=== PATIENT | male | born 1965 | race Caucasian/White ===

== ENCOUNTER 2017-09-06 15:58 | Emergency (ER) | payer SELFPAY ==
[2017-09-06 16:03] VITALS: TEMP 97.2
--- NOTE | 2017-09-06 17:38 | ED PDOC ---
HPI: Psych/Substance Abuse Time Seen by Provider: 09/06/17 16:09 Chief Complaint (Nursing): Alcohol Ingestion Chief Complaint (Provider): Alcohol Ingestion History Per: EMS History/Exam Limitations: intoxication Onset/Duration Of Symptoms: Hrs Current Symptoms Are (Timing): Still Present Modifying Factor(s): Alcohol Additional Complaint(s): 51 year old male brought in by EMS for intoxication. Bottles of liquor in possession. History and review of systems limited due to intoxicated state. Past Medical History Reviewed: Historical Data, Nursing Documentation, Vital Signs Vital Signs: Last Vital Signs Temp 97.2 F L 09/06/17 16:01 Pulse 70 09/06/17 16:01 Resp 16 09/06/17 16:01 BP 102/59 L 09/06/17 16:01 Pulse Ox 95 09/06/17 16:01 - Medical History PMH: Schizophrenia Denies: Diabetes, Hepatitis, HIV, HTN, Seizures, Sexually Transmitted Disease - Surgical History Surgical History: No Surg Hx - Family History Family History: States: Unknown Family Hx - Home Medications Home Medications: Ambulatory Orders Medication Instructions Recorded No Known Home Med [No Known Home 11/19/14 Med] - Allergies Allergies/Adverse Reactions: Allergies Allergy/AdvReac Type Severity Reaction Status Date / Time No Known Allergies Allergy Verified 09/06/17 16:00 Review of Systems Review Of Systems: ROS cannot be obtained secondary to pt's inabilty to answer questions. Physical Exam - Reviewed Nursing Documentation Reviewed: Yes Vital Signs Reviewed: Yes - Physical Exam Appears: Positive for: No Acute Distress Head Exam: Positive for: ATRAUMATIC, NORMOCEPHALIC Skin: Positive for: Normal Color, Warm, Dry Eye Exam: Positive for: Normal appearance, EOMI, PERRL ENT: Positive for: Normal ENT Inspection Neck: Positive for: Normal, Painless ROM Cardiovascular/Chest: Positive for: Regular Rate, Rhythm. Negative for: Murmur Respiratory: Positive for: Normal Breath Sounds. Negative for: Respiratory Distress Gastrointestinal/Abdominal: Positive for: Normal Exam Back: Positive for: Normal Inspection Extremity: Positive for: Normal ROM. Negative for: Pedal Edema, Deformity Neurologic/Psych: Positive for: Other (Arousable to verbal stimuli ) - ECG O2 Sat by Pulse Oximetry: 95 (RA) Pulse Ox Interpretation: Normal Medical Decision Making Medical Decision Making: Time: 1622 Plan: -- Glucose, Blood POC Time: 1649 Plan: -- Glucose, POC Time: 1709 Plan: -- Alcohol Serum Scribe Attestation: Documented by Whitney Bower, acting as a scribe for Dr. Lanny Thomas MD. Provider Scribe Attestation: All medical record entries made by the Scribe were at my direction and personally dictated by me. I have reviewed the chart and agree that the record accurately reflects my personal performance of the history, physical exam, medical decision making, and the department course for this patient. I have also personally directed, reviewed, and agree with the discharge instructions and disposition. Disposition - Clinical Impression Clinical Impression: Alcohol abuse with intoxication - Disposition Referrals: [facility] [Outside] Disposition: Transfer of Care Disposition Time: 19:00 Condition: GOOD Additional Instructions: Follow up with your PCP in 4-5 days Instructions: Alcohol Abuse and Alcoholism (DC) Patient Signed Over To: Patti Kuhn Handoff Comments: Pending sobriety.
--- NOTE | 2017-09-06 19:14 | ED PDOC ---
- ECG O2 Sat by Pulse Oximetry: 95 (RA) Pulse Ox Interpretation: Normal - Progress Re-evaluation Time: 22:39 Condition: Re-examined, Improved Medical Decision Making Medical Decision Making: Patient endorsed to me @[address] Thomas, pending sobriety. Scribe Attestation: Documented by Whitney Bower, acting as a scribe for Dr. Patti Kuhn MD. Provider Scribe Attestation: All medical record entries made by the Scribe were at my direction and personally dictated by me. I have reviewed the chart and agree that the record accurately reflects my personal performance of the history, physical exam, medical decision making, and the department course for this patient. I have also personally directed, reviewed, and agree with the discharge instructions and disposition. Disposition Doctor Will See Patient In The: Office Counseled Patient/Family Regarding: Studies Performed, Diagnosis, Need For Followup - Clinical Impression Clinical Impression: Alcohol abuse with intoxication - POA Present On Arrival: None - Disposition Referrals: [facility] [Outside] Disposition: Routine/Home Disposition Time: 22:39 Additional Instructions: Follow up with your PCP in 4-5 days Instructions: Alcohol Abuse and Alcoholism (DC)
[2017-09-06 23:37] VITALS: BP 115/75; PULSE 78; RESP 15
[2017-09-09 18:20] VITALS: O2SAT 95
== END 2017-09-06 23:37 | disposition home or self-care (01) ==
LOC: H.ER 15:58
DX: F10.129 Alcohol abuse with intoxication, unspecified (principal); F20.9 Schizophrenia, unspecified
CPT/HCPCS: 82948; 99283; G0480